=== PATIENT | female | born 1985 | race Caucasian/White ===

== ENCOUNTER 2017-10-15 12:06 | Inpatient (IN) | payer BC ==
[2017-10-15] MEDS ORDERED: OXYTOCIN 30 UNITS/LR 500 ML IV (13:00)
[2017-10-15] MEDS ORDERED: MISOPROSTOL 200 MCG TAB PR (13:00)
[2017-10-15] MEDS ORDERED: IBUPROFEN 600 MG TAB PO (13:00)
[2017-10-15] MEDS ORDERED: CARBOPROST 250 MCG INJ IM (13:00)
[2017-10-15] MEDS: LACTATED RINGER'S 1,000 ML IV ×2 (14:48→19:54)
[2017-10-15 14:52] LABS: ADD MAN DIFF? NO
[2017-10-15 15:00] LABS: WHITE BLOOD COUNT 9.3 10^3/ul (4.8-10.8)
[2017-10-15 15:00] LABS: BASOPHILS % 0.3 % (0.0-2.0); EOSINOPHILS # 0.1 10^3/ul (0.0-0.5); EOSINOPHILS % 0.8 % (0.0-7.0); HEMATOCRIT 34.3 % (37.0-47.0); HEMOGLOBIN 11.6 g/dl (12.0-16.0); LYMPHOCYTES # 2.3 10^3/ul (0.8-2.9); LYMPHOCYTES % 24.4 % (15.0-51.0); MEAN CORPUSCULAR HEMOGLOBIN 30.3 pg (29.0-33.0); MEAN CORPUSCULAR HGB CONC 33.8 g/dl (32.0-37.0); MEAN CORPUSCULAR VOLUME 89.6 fl (82.0-101.0); MEAN PLATELET VOLUME 8.9 fl (7.4-10.4); MONOCYTE # 0.4 10^3/ul (0.3-0.9); MONOCYTES % 4.8 % (0.0-11.0); NEUTROPHIL # 6.4 10^3/ul (1.6-7.5); NEUTROPHILS % 68.9 % (39.0-77.0); PLATELET COUNT 331 10^3/UL (140-415); RED BLOOD COUNT 3.83 10^6/ul (4.20-5.40); RED CELL DISTRIBUTION WIDTH 12.4 % (11.5-14.5)
[2017-10-15 15:32] LABS: INR 0.95; PROTIME 12.8 Sec (11.9-14.9)
[2017-10-15 15:33] LABS: PARTIAL THROMBOPLASTIN TIME 30.4 Sec (25.0-35.0)
[2017-10-15 15:51] LABS: HEPATITIS B SURFACE ANTIGEN NEGATIVE (NEGATIVE)
[2017-10-15] MEDS: DINOPROSTONE 10 MG VAG SUPP VAG (16:11)
[2017-10-15] MEDS ORDERED: OXYCODONE/ACETAMINOPHEN (5/325) TAB PO (19:30)
[2017-10-15 22:14] LABS: RAPID PLASMA REAGIN NONREACTIVE (NR)
[2017-10-15] MEDS: BUTORPHANOL 2 MG INJ IV (23:28)
[2017-10-16] MEDS: OXYTOCIN 30 UNITS/LR 500 ML IV ×4 (00:07→17:41)
[2017-10-16] MEDS: LACTATED RINGER'S 1,000 ML IV ×3 (01:03→11:10)
[2017-10-16] MEDS ORDERED: EPHEDrine SULFATE 50 MG/5 ML SYG IV (03:00)
[2017-10-16] MEDS ORDERED: NALOXONE (0.4 MG/ML) INJ IV (03:00)
[2017-10-16] MEDS ORDERED: ONDANSETRON 4 MG INJ IV (03:00)
[2017-10-16] MEDS ORDERED: DIPHENHYDRAMINE 50 MG INJ IV (03:00)
[2017-10-16] MEDS: FENTAnyl 2MCG/ML-ROPIV 0.2% 100 ML BAG EPI ×2 (03:46→10:10)
[2017-10-16] MEDS: MINERAL OIL LIGHT 10 ML VIAL TOP (12:49)
[2017-10-16] MEDS: METHYLERGONOVINE 0.2 MG INJ IM (12:58)
[2017-10-16] MEDS: LIDOCAINE 1% (MPF) 30 ML INJ INJ (13:01)
[2017-10-16] MEDS ORDERED: NACL 0.9% 3 ML SYG IV (13:30)
[2017-10-16] MEDS ORDERED: MISOPROSTOL 200 MCG TAB PR (13:30)
[2017-10-16] MEDS ORDERED: CARBOPROST 250 MCG INJ IM (13:30)
[2017-10-16] MEDS ORDERED: OXYTOCIN 30 UNITS/LR 500 ML IV (13:30)
[2017-10-16] MEDS ORDERED: BENZOCAINE 20% 56 ML SPRAY TOP (13:30)
[2017-10-16] MEDS ORDERED: METHYLERGONOVINE 0.2 MG INJ IM (13:30)
[2017-10-16] MEDS: OXYCODONE/ASPIRIN (4.88/325) TAB PO ×2 (15:04→20:12)
[2017-10-16] MEDS: WITCH HAZEL/GLYCERIN PAD PR (15:05)
[2017-10-16] MEDS: DIBUCAINE 1% 30 GM OINT PR (15:05)
[2017-10-16] MEDS: IBUPROFEN 600 MG TAB PO ×2 (17:41→23:46)
[2017-10-17] MEDS: IBUPROFEN 600 MG TAB PO ×3 (05:38→17:55)
[2017-10-17 09:31] LABS: ADD MAN DIFF? NO
[2017-10-17 09:36] LABS: WHITE BLOOD COUNT 12.7 10^3/ul (4.8-10.8)
[2017-10-17 09:36] LABS: BASOPHILS % 0.1 % (0.0-2.0); EOSINOPHILS # 0.2 10^3/ul (0.0-0.5); EOSINOPHILS % 1.2 % (0.0-7.0); HEMATOCRIT 26.1 % (37.0-47.0); HEMOGLOBIN 8.8 g/dl (12.0-16.0); LYMPHOCYTES # 2.3 10^3/ul (0.8-2.9); MEAN CORPUSCULAR HEMOGLOBIN 30.7 pg (29.0-33.0); MEAN CORPUSCULAR HGB CONC 33.7 g/dl (32.0-37.0); MEAN CORPUSCULAR VOLUME 90.9 fl (82.0-101.0); MONOCYTE # 0.7 10^3/ul (0.3-0.9); MONOCYTES % 5.3 % (0.0-11.0); NEUTROPHIL # 9.5 10^3/ul (1.6-7.5); NEUTROPHILS % 74.8 % (39.0-77.0); PLATELET COUNT 255 10^3/UL (140-415); RED BLOOD COUNT 2.87 10^6/ul (4.20-5.40); RED CELL DISTRIBUTION WIDTH 12.5 % (11.5-14.5)
[2017-10-17] MEDS: OXYCODONE/ASPIRIN (4.88/325) TAB PO (18:58)
[2017-10-18] MEDS: IBUPROFEN 600 MG TAB PO ×2 (00:12→05:45)
== END 2017-10-18 12:10 | disposition home or self-care (01) | DRG 775 ==
LOC: L-D 12:06 → PP1 10-16 14:36
PROVIDERS: Obstetrics & Gynecology
PROC: 10E0XZZ Delivery of Products of Conception, External Approach (ICD-10-PCS; principal; 2017-10-16)
PROC: 0KQM0ZZ Repair Perineum Muscle, Open Approach (ICD-10-PCS; 2017-10-16)
DX: O48.0 Post-term pregnancy (principal); O70.1 Second degree perineal laceration during delivery; Z3A.40 40 weeks gestation of pregnancy; Z37.0 Single live birth
CPT/HCPCS: 62319; 76815; 85025; 85610; 85730; 86592; 86850; 86900; 86901; 87340